=== PATIENT | female | born 1975 | race Caucasian/White ===

== ENCOUNTER 2016-11-23 17:00 | Emergency (ER) | payer BC ==
[~2016-11-23] VITALS: Ht 165.1 cm; Wt 70.0 kg
[2016-11-23 17:12] LABS: BASOPHIL # 0.1 10^3/ul (0.0-0.1); BASOPHILS % 0.6 % (0.0-2.0); EOSINOPHILS # 0.2 10^3/ul (0.0-0.5); EOSINOPHILS % 1.6 % (0.0-7.0); HEMATOCRIT 39.6 % (37.0-47.0); HEMOGLOBIN 13.2 g/dl (12.0-16.0); LYMPHOCYTES # 3.5 10^3/ul (0.8-2.9); LYMPHOCYTES % 30.5 % (15.0-51.0); MEAN CORPUSCULAR HEMOGLOBIN 31.2 pg (29.0-33.0); MEAN CORPUSCULAR HGB CONC 33.3 g/dl (32.0-37.0); MEAN CORPUSCULAR VOLUME 93.6 fl (82.0-101.0); MEAN PLATELET VOLUME 9.8 fl (7.4-10.4); MONOCYTE # 0.7 10^3/ul (0.3-0.9); MONOCYTES % 5.9 % (0.0-11.0); NEUTROPHIL # 6.9 10^3/ul (1.6-7.5); NEUTROPHILS % 61.1 % (39.0-77.0); PLATELET COUNT 294 10^3/UL (140-415); RED BLOOD COUNT 4.23 10^6/ul (4.20-5.40); RED CELL DISTRIBUTION WIDTH 13.5 % (11.5-14.5); WHITE BLOOD COUNT 11.3 10^3/ul (4.8-10.8)
[2016-11-23] MEDS ORDERED: ASPIRIN 325 MG TAB PO STA (17:14)
[2016-11-23 17:17] VITALS: Ht 165.1 cm; Wt 70.0 kg
--- NOTE | 2016-11-23 17:19 | RADRPT ---
PROCEDURE: CT Brain without contrast. CLINICAL INDICATION: Code stroke TECHNIQUE: A CT of the brain was performed on a multidetector CT scanner utilizing axial sections from the skull base through the vertex without contrast. Images were reviewed on a high-resolution [employer] workstation. Exam CTDI = 43.14 mGy and the DLP = 840.34 mGy-cm. One or more of the following dose reduction techniques were used: Automated exposure control Adjustment of the mA and/or kV according to patient size. Use of iterative reconstruction technique. COMPARISON: None available FINDINGS: There is no evidence of intracranial hemorrhage, mass effect or midline shift. No abnormal intra-ax ial or extra-axial fluid collections are seen. The density of the brain is normal and the espinosa/whit e matter differentiation is well preserved. The osseous structures are unremarkable. A call report was made to Dr. CIRO MERCHANT at 11/23/2016 5:18:20 PM following completion of the exami nation. IMPRESSION: 1. No intracranial hemorrhage, mass effect or midline shift. RPTAT: BB .Donny Alegre MD, Date Time Electronically viewed and signed by .Donny Alegre MD, MD on 11/23/2016 17:18 .O/
[2016-11-23] MEDS ORDERED: SOD CHLORIDE 0.9% 50 ML IVPB STA (17:22)
[2016-11-23 17:29] LABS: INR 0.95; PROTIME 12.7 Sec (12.2-14.2)
[2016-11-23 17:30] LABS: PARTIAL THROMBOPLASTIN TIME 31.5 Sec (25.0-35.0)
[2016-11-23] MEDS ORDERED: ALTEPLASE 100 MG INJ IV* ONE (17:30)
[2016-11-23] MEDS ORDERED: ALTEPLASE (tPA) 1 MG/ML BOLUS SYG IV* ONE (17:30)
[2016-11-23 17:31] LABS: ANION GAP 10 (8-16); BLOOD UREA NITROGEN 9 mg/dl (7-20); CALCIUM 9.6 mg/dl (8.4-10.2); CARBON DIOXIDE 28 mmol/L (21-31); CHLORIDE 106 mmol/L (97-110); GLUCOSE 96 mg/dl (70-220); POTASSIUM 3.9 mmol/L (3.5-5.1); SODIUM 140 mmol/L (135-144)
--- NOTE | 2016-11-23 17:42 | STROKE ---
Date/Time of Note Date/Time of Note DATE: 11/23/16 TIME: 19:38 Patient Information General Patient location: emergency Arrival Date Onset Time: 16:45 Age 41 Gender female Weight 70 kg Clinical Presentation 41 YO W presenting to ED with aphasia onset at 16:45 and no other focal neurologic deficits. Able to say 2017 when asked year. Reporting mild reduced sensation in L face only that resolved upon retesting. Highly functional exam with delayed speech but no certain aphasia. Speech rapidly oscillates in quality. No dysarthria. Speech is consistent with stuttering. Patient reports at end of interview that she is feeling nearly back to normal but was much worse at home. Vital Signs Vital Signs Vital Signs Date Time Temp Pulse Resp B/P Pulse Ox O2 Delivery O2 Flow Rate FiO2 11/23/16 17:17 98.5 71 18 115/77 100 Patient History Current Medications Allergies: Coded Allergies: ibuprofen (Unverified Allergy, Unknown, 11/23/16) Labs Hematology Labs Hematology Test 11/23/16 17:05 White Blood Count 11.310^3/ul (4.8-10.8) Red Blood Count 4.2310^6/ul (4.20-5.40) Hemoglobin 13.2g/dl (12.0-16.0) Hematocrit 39.6% (37.0-47.0) Mean Corpuscular Volume 93.6fl (82.0-101.0) Mean Corpuscular Hemoglobin 31.2pg (29.0-33.0) Mean Corpuscular Hemoglobin Concent 33.3g/dl (32.0-37.0) Red Cell Distribution Width 13.5% (11.5-14.5) Platelet Count 51623^3/UL (140-415) Mean Platelet Volume 9.8fl (7.4-10.4) Neutrophils % 61.1% (39.0-77.0) Lymphocytes % 30.5% (15.0-51.0) Monocytes % 5.9% (0.0-11.0) Eosinophils % 1.6% (0.0-7.0) Basophils % 0.6% (0.0-2.0) Nucleated Red Blood Cells % 0.0/100WBC (0.0-0.0) Neutrophils # 6.910^3/ul (1.6-7.5) Lymphocytes # 3.510^3/ul (0.8-2.9) Monocytes # 0.710^3/ul (0.3-0.9) Eosinophils # 0.210^3/ul (0.0-0.5) Basophils # 0.110^3/ul (0.0-0.1) Nucleated Red Blood Cells # 0.010^3/ul (0.0-0.0) Chemistry Labs Chemistry Test 11/23/16 17:05 Hemoglobin A1c 5.2% (0-5.9) Serum HCG, Qualitative NEGATIVE (NEGATIVE) Coagulation Labs: Coagulation Test 11/23/16 17:05 Prothrombin Time 12.7Sec (12.2-14.2) Prothrombin Time Ratio 1.0 INR International Normalized Ratio 0.95 Activated Partial Thromboplast Time 31.5Sec (25.0-35.0) History & Physical History of Present Illness 41 YO W presenting to ED with aphasia Last known well 16:45 and no other focal neurologic deficits. Able to say 2017 when asked year. Reporting mild reduced sensation in L face only that resolved upon retesting. Highly functional exam with delayed speech but no certain aphasia. Speech rapidly oscillates in quality. No dysarthria. Speech is consistent with stuttering. Patient reports at end of interview that she is feeling nearly back to normal but was much worse at home. NIH Stroke Scale NIH Stroke Scale Date/Time Recorded DATE: 11/23/16 TIME: 19:38 Submitted By Lino Atkins t-PA Imaging Review Imaging Reviewed: Yes Date/Time Imaging Reviewed DATE: 11/23/16 TIME: 19:38 Imaging Findings No acute pathology t-PA Administration Recommendation: No Weight 70 kg Recommedation submitted by Lino Atkins Reason t-PA not Recommended NIHSS 0 Recommendations Recommendation 41 YO W with transient speech abnormality concerning for TIA vs functional disorder - Agree with admitting for TIA studies: MRI Brain, MRA Head/Neck, TTE with bubble, telemetry, EKG, LDL, A1c, SP, PT, OT - Would perform bedside swallow testing in ED and load with ASA 325 mg PO if passes LINO ATKINS MD Nov 23, 2016 17:41
[2016-11-23 17:44] LABS: TROPONIN-I < 0.012 ng/ml (0.00-0.12)
--- NOTE | 2016-11-23 18:21 | RADRPT ---
AMENDMENT: 11/23/2016 6:23:16 PM Edward Reeves Md Addendum: There is deviation of the trachea to the left presumably from a large right thyroid lobe. Recommend correlation with ultrasound at some point PROCEDURE: Chest x-ray CLINICAL INDICATION: Stroke TECHNIQUE: Chest single view COMPARISON: None FINDINGS: The heart is normal in size. The pulmonary vessels are normal in caliber. The lungs are clear. Th e costophrenic angles are sharp. The visualized bony thorax is unremarkable. IMPRESSION: No acute cardiopulmonary disease. RPTAT: HH .Edward Reeves MD, MD Date Time Electronically viewed and signed by .Edward Reeves MD, on 11/23/2016 18:23 .W/
[2016-11-23 19:16] VITALS: BP 107/70; PULSE 71; RESP 18; TEMP 98.9
--- NOTE | 2016-11-23 19:55 | ERD ---
ER Documentation Chief Complaint Date/Time DATE: 11/23/16 TIME: 19:51 Chief Complaint BROUGHT IN VIA EMS WITH C/O LEFT SIDED HEADACHE WITH NEW ONSET APHASIA HPI Patient is a 41-year-old female with no medical problems who presents unable to speak. Please note the history and physical exam is limited secondary to her aphasia at this time. 20 for 5 minutes prior to arrival the patient started with inability to speak. She said that she has left-sided facial numbness. Her sugar was 92 by paramedics and she was brought in by ambulance. Upon review of old medical records this is the patient's third visit to the ER since 2006. Her primary doctor is Dr. Junior. ROS All systems reviewed and are negative except as per history of present illness. Medications Home Meds No Active Prescriptions or Reported Meds Allergies Allergies: Coded Allergies: ibuprofen (Unverified Allergy, Unknown, 11/23/16) PMhx/Soc Medical and Surgical Hx: Unable to obtain Hx Alcohol Use: No Hx Substance Use: No Hx Tobacco Use: No Smoking Status: Never smoker FmHx Family History: No diabetes Physical Exam Vitals Vital Signs Date Time Temp Pulse Resp B/P Pulse Ox O2 Delivery O2 Flow Rate FiO2 11/23/16 19:16 98.9 71 18 107/70 99 Room Air 11/23/16 17:17 98.5 71 18 115/77 100 Physical Exam Const: Aphasia but able to follow commands Head: Atraumatic Eyes: Normal Conjunctiva ENT: Normal External Ears, Nose and Mouth. Neck: Full range of motion..~ No meningismus. Resp: Clear to auscultation bilaterally Cardio: Regular rate and rhythm, no murmurs Abd: Soft, non tender, non distended. Normal bowel sounds Skin: No petechiae or rashes Back: No midline or flank tenderness Ext: No cyanosis, or edema Neur: Awake And able to follow commands, dense aphasia and is unable to speak , no obvious facial droop. No pronator drift, finger to nose is normal Psych: Normal Mood and Affect Result Diagram: 11/23/16 1705 11/23/16 1705 Results 24 hrs Laboratory Tests Test 11/23/16 17:05 11/23/16 18:00 White Blood Count 11.310^3/ul Red Blood Count 4.2310^6/ul Hemoglobin 13.2g/dl Hematocrit 39.6% Mean Corpuscular Volume 93.6fl Mean Corpuscular Hemoglobin 31.2pg Mean Corpuscular Hemoglobin Concent 33.3g/dl Red Cell Distribution Width 13.5% Platelet Count 98710^3/UL Mean Platelet Volume 9.8fl Neutrophils % 61.1% Lymphocytes % 30.5% Monocytes % 5.9% Eosinophils % 1.6% Basophils % 0.6% Nucleated Red Blood Cells % 0.0/100WBC Neutrophils # 6.910^3/ul Lymphocytes # 3.510^3/ul Monocytes # 0.710^3/ul Eosinophils # 0.210^3/ul Basophils # 0.110^3/ul Nucleated Red Blood Cells # 0.010^3/ul Prothrombin Time 12.7Sec Prothrombin Time Ratio 1.0 INR International Normalized Ratio 0.95 Activated Partial Thromboplast Time 31.5Sec Sodium Level 140mmol/L Potassium Level 3.9mmol/L Chloride Level 106mmol/L Carbon Dioxide Level 28mmol/L Anion Gap 10 Blood Urea Nitrogen 9mg/dl Creatinine 0.80mg/dl Glucose Level 96mg/dl Hemoglobin A1c 5.2% Calcium Level 9.6mg/dl Troponin I < 0.012ng/ml Serum HCG, Qualitative NEGATIVE Bedside Glucose 80mg/dL Current Medications Medications (Trade) Dose Ordered Sig/Arash Route PRN Reason Start Time Stop Time Status Last Admin Dose Admin Aspirin (Aspirin) 325 mg ONCE STAT PO 11/23/16 17:14 11/23/16 17:16 DC 11/23/16 17:55 Alteplase, Recombinant (Activase) 6.3 mg BOLUS OVER 1 MIN ONCE IV* 11/23/16 17:30 11/23/16 17:33 DC Alteplase, Recombinant 56.7 mg 56.7 mg ISCHEMIC STROKE ONCE IV* 11/23/16 17:30 11/23/16 17:33 DC Sodium Chloride (NS) 50 ml @ 0 mls/hr ONCE STAT IVPB 11/23/16 17:22 11/23/16 17:33 DC Procedures/MDM CT brain shows no acute normality per radiology. EKG read by me: Rate/Rhythm: Regular rate and rhythm at a normal rate Intervals: Normal Impression: No evidence of ischemia or arrhythmia Smoking Cessation Therapy: Pt. was lectured for greater than 3 minutes on the health risks of continued smoking and the benefits of cessation. Patient is a 41-year-old female who presents with aphasia. The patient arrived at 1659. A code stroke was called at 1700. Tele-neurology was called at 1705. Dr. Daley from tele-neurology called at 1709. The patient came back from CT scan at 1712. Dr. Daley performed his evaluation at 1720. At 1725 the patient had a NIH stroke scale of 7 per nursing. At [address]. Daley and I decided not to give TPA as the patient had rapidly improving symptoms and now has an NIH stroke scale of 0. Patient is a 41-year-old smoker who presents with aphasia. The concern was for stroke and she was within the window for TPA so a code stroke was called. The patient had rapidly improving symptoms and therefore the risks of giving TPA outweigh the benefits as this is most likely a TIA. I want to transfer her to [facility] as this is where her insurance is capitated to but the patient is adamantly refusing transfer at this time. I did offer and recommend transfer and admission but she is refusing and is going to sign out AGAINST MEDICAL ADVICE. She can return for any worsening symptoms. She should follow-up with her primary doctor tomorrow morning for evaluation. Critical Care: Time: 45 minutes excluding all billable procedures. Treatments/Evaluations: Close monitoring and treatment of unstable vital signs, cardiorespiratory, and neurologic status, while maintaining tight balance of fluid, respiratory, and cardiac interventions. Departure Diagnosis: Primary Impression: TIA (transient ischemic attack) Transient cerebral ischemia type: unspecified Qualified Code: G45.9 - Transient cerebral ischemia, unspecified type Condition: Serious Patient Instructions: Transient Ischemic Attack (TIA) Referrals: Your doctor Additional Instructions: Call your primary care doctor TOMORROW for an appointment during the next 1-2 days.See the doctor sooner or return here if your condition worsens before your appointment time. SHONDA TANNER MD Nov 23, 2016 19:55
== END 2016-11-23 19:16 | disposition left against medical advice (07) ==
LOC: E/R 17:00
DX: G45.9 Transient cerebral ischemic attack, unspecified (principal); R40.2142 Coma scale, eyes open, spontaneous, at arrival to emergency department; R40.2252 Coma scale, best verbal response, oriented, at arrival to emergency department; R40.2362 Coma scale, best motor response, obeys commands, at arrival to emergency department; R06.02 Shortness of breath
CPT/HCPCS: 36415; 70450; 71010; 80048; 82962; 83036; 84484; 84703; 85025; 85610; 85730; 93005; Z7502; Z7610; J2997

== ENCOUNTER 2018-10-06 10:33 | Emergency (ER) | payer BC ==
[~2018-10-06] VITALS: Ht 167.6 cm; Wt 71.6 kg
[2018-10-06 10:35] VITALS: Ht 167.6 cm; Wt 71.6 kg
[2018-10-06] MEDS ORDERED: NPH10OT LEFT EAR (12:18)
--- NOTE | 2018-10-06 12:19 | ERD ---
ER Documentation Chief Complaint Chief Complaint EAR PAIN SINCE YESTERDAY WITH SWELLING OF THE FACE HPI Patient is a 43-year-old female with no medical problems who presents with ear pain. She also noticed that her left face was swollen this morning. She said the swelling is much better now. She complained of shortness of breath at 7:30 in the morning and felt sweaty. She has nausea but no vomiting. She has no fevers. She has had no treatment as of yet. Upon review of old medical records this is the patient's fourth visit to the ER since 2006. The patient does have a primary doctor. ROS All systems reviewed and are negative except as per history of present illness. Medications Home Meds Active Scripts Neomycin/Polymyxin/Hydrocort* (Cortisporin* Otic) 10 Ml Susp, 4 DROP LEFT EAR QID, #1 EA Prov:SHONDA TANNER MD 10/06/18 Allergies Allergies: Coded Allergies: ibuprofen (Unverified Allergy, Unknown, 10/06/18) PMhx/Soc Medical and Surgical Hx: pt denies Medical Hx, pt denies Surgical Hx Hx Alcohol Use: No Hx Substance Use: No Hx Tobacco Use: Yes (10cigs/day) Smoking Status: Current every day smoker FmHx Family History: No diabetes Physical Exam Vitals Vital Signs Date Temp Pulse Resp B/P (MAP) Pulse Ox O2 O2 Flow FiO2 Time Delivery Rate 10/06/18 98.0 74 16 91/56 (68) 99 Room Air 12:48 10/06/18 97.2 111 24 124/73 99 10:35 (90) Physical Exam Const: No acute distress Head: Atraumatic Eyes: Normal Conjunctiva ENT: No signs of acute otitis media bilateral tympanic membranes, no facial swelling appreciated Neck: Full range of motion. No meningismus. Resp: Clear to auscultation bilaterally Cardio: Regular rate and rhythm, no murmurs Abd: Soft, non tender, non distended. Normal bowel sounds Skin: No petechiae or rashes Back: No midline or flank tenderness Ext: No cyanosis, or edema Neur: Awake and alert Psych: Normal Mood and Affect Results 24 hrs Laboratory Tests Test 10/06/18 10:59 10/06/18 11:04 10/06/18 11:05 Bedside Glucose 92 mg/dL Bedside Urine pH (LAB) 6.0 Bedside Urine Protein (LAB) 1+ Bedside Urine Glucose (UA) Negative Bedside Urine Ketones (LAB) 1+ Bedside Urine Blood 2+ Bedside Urine Nitrite (LAB) Negative Bedside Urine Leukocyte Esterase (L Trace POC Beta HCG, Qualitative NEGATIVE Procedures/MDM EKG read by me: Rate/Rhythm: Regular rate and rhythm at a rate of 82 Intervals: Normal Impression: No evidence of ischemia or arrhythmia test is negative. Accu-Chek is normal. Patient is a 43-year-old female who presents with left ear pain and complaint of facial swelling. I do not appreciate any facial swelling at this time. Neurologic exam is normal. Tympanic membranes are normal bilaterally. Given her ear pain I will give her a prescription for Cortisporin otic drops for symptom medic relief. She will need to follow-up with her primary doctor within 1 week. She can return for any worsening symptoms. EKG shows no signs of ischemia and I doubt ischemia or arrhythmia. Accu-Chek is normal I doubt hypoglycemia. test is negative I doubt or ectopic . Departure Diagnosis: Primary Impression: Dizziness Additional Impression: Left ear pain Condition: Fair Patient Instructions: Dizziness, Unk Cause, Earache W/O Infection (Adult) Additional Instructions: Call your primary care doctor TOMORROW for an appointment during the next 1 WEEK.Tell the audio visual secretary that you were referred from this facility.See the doctor sooner or return here if your condition worsens before your appointment time. SHONDA TANNER MD Oct 06, 2018 12:19
[2018-10-06 12:48] VITALS: BP 91/56; PULSE 74; RESP 16
== END 2018-10-06 12:49 | disposition home or self-care (01) ==
LOC: E/R 10:33
DX: H92.02 Otalgia, left ear (principal); R42 Dizziness and giddiness; F17.210 Nicotine dependence, cigarettes, uncomplicated
CPT/HCPCS: 81003; 81025; 82962; 93005